=== PATIENT | female | born 2000 | race Caucasian/White ===

== ENCOUNTER 2020-02-20 09:40 | Emergency (ER) | payer OTHER ==
[~2020-02-20] VITALS: Ht 147.3 cm; Wt 61.2 kg
[2020-02-20 09:47] VITALS: Ht 147.3 cm; Wt 61.2 kg
[2020-02-20 10:46] LABS: BASOPHIL % 0.7 % (0-2); PLATELET COUNT 223 x10^3mcL (130-400); RED CELL DISTRIBUTION WIDTH 13.9 % (11.5-14.5)
[2020-02-20 11:05] LABS: CALCIUM 8.9 mg/dL (8.5-10.1); CARBON DIOXIDE 27.2 mmol/L (21-32); CHLORIDE SERUM 103 mmol/L (98-107); CREATININE SERUM 0.7 mg/dL (0.6-1.0); GFR1 > 60 mL/min; GLUCOSE SERUM 92 mg/dL (74-106); POTASSIUM SERUM 3.6 mmol/L (3.5-5.1); SODIUM SERUM 138 mmol/L (136-145)
[2020-02-20 11:10] LABS: ALKALINE PHOSPHATASE 51 U/L (46-116); ALT/SGPT 15 U/L (14-59); AST/SGOT 13 U/L (15-37); BILIRUBIN TOTAL 0.73 mg/dL (0.20-1.00); LIPASE 52 IU/L (73-393); TOTAL PROTEIN, SERUM 7.4 g/dL (6.4-8.2)
[2020-02-20 11:19] LABS: UA SPECIFIC GRAVITY >=1.030 (1.005-1.035); microscopic required? YES; urine erythrocyte 3+ (NEGATIVE)
[2020-02-20 11:32] LABS: AMPHETAMINE QUAL UR NONE DETECTED (See below)
[2020-02-20 13:05] VITALS: BP 124/74
== END 2020-02-20 13:25 | disposition home or self-care (01) ==
LOC: ED 09:40
PROVIDERS: Emergency Medicine
DX: F12.988 Cannabis use, unspecified with other cannabis-induced disorder (principal); R10.13 Epigastric pain
CPT/HCPCS: J2405; J3490; J7030; Q0092